=== PATIENT | female | born 1990 | race Caucasian/White ===

== ENCOUNTER 2016-07-26 22:40 | Emergency (ER) | payer SELFPAY | END 2016-07-27 01:11 | disposition home or self-care (01) | LOC: D.ER 22:40 | DX: R07.89 Other chest pain (principal) ==

== ENCOUNTER 2017-06-04 02:46 | Emergency (ER) | payer SELFPAY | END 2017-06-04 04:03 | disposition home or self-care (01) | LOC: D.ER 02:46 | DX: J06.9 Acute upper respiratory infection, unspecified (principal); J20.9 Acute bronchitis, unspecified ==